=== PATIENT | male | born 1955 | race Caucasian/White ===

== ENCOUNTER → 2025-01-19 | Outpatient (REF) | payer MEDICARE, OTHER ==
[~2025-01-19] MED LIST: GADOBENATE DIMEGLUMINE 1 ML IV ONE
== END ==
LOC: MRI 08:41
PROVIDERS: ATTEND Psychiatry & Neurology Neurology
DX: R51.9 Headache, unspecified (principal); R09.89 Other specified symptoms and signs involving the circulatory and respiratory systems
CPT/HCPCS: 72156; A9577

== ENCOUNTER → 2025-01-19 | Outpatient (REF) | payer MEDICARE, OTHER | LOC: MRI 09:09 | PROVIDERS: ATTEND Ophthalmology | DX: H53.10 Unspecified subjective visual disturbances (principal); H53.462 Homonymous bilateral field defects, left side | CPT/HCPCS: 70543; 70553 ==